=== PATIENT | female | born 1975 | race Caucasian/White ===

== ENCOUNTER → 2017-06-13 | Outpatient (CLI) | payer OTHER ==
[~2017-06-13] MED LIST: ADDERALL XR 1515 MG PO; ADDERALL XR 2525 MG PO; ADDERALL15 MG PO; CIPROFLOXACIN500 M1; CLONAZEPAM0.5 MG PO; CYMBALTA; CYMBALTA30 MG; CYMBALTA60 MG; CYMBALTA60 MG PO; DESYREL100 MG; FLEXERIL5 MG PO; FLOMAX0.4 MG PO; GABAPENTIN600 MG PO; HYDROCODON-ACE1 EA11; LAMICTAL100 MG PO; LAMICTAL25 MG PO; MOTRIN800 MG PO; NAPROSYN500 MG PO; NEURONTIN300 MG PO; ONDANSETRON HCL4 MG; ONDANSETRON ODT4 MG; OXYCODONE-APAP1 EAC6; PERCOCET 5/31 TABLET PO; PHENTERMINE HCL30 MG PO; PROZAC40 MG PO; RITALIN20 MG PO; TORADOL10 MG PO; TRAZODONE; TRAZODONE HCL100 MG PO; TRAZODONE HCL150 MG PO; ULTRAM50 MG PO; VYVANSE20 MG PO; WELLBUTRIN SR150 MG PO; ZOFRAN4 MG PO
== END | disposition home or self-care (01) ==
DX: R13.10 Dysphagia, unspecified (principal); Z87.19 Personal history of other diseases of the digestive system
CPT/HCPCS: 92611 GN; G8996 GN; G8997 GN; G8998 GN

== ENCOUNTER 2017-09-27 05:12 | Day surgery (SDC) | payer OTHER ==
[~2017-09-27] VITALS: Ht 175.3 cm; Wt 110.2 kg
[~2017-09-27 05:12] MED LIST changes: +AMBIEN10 MG PO; +KLONOPIN1 MG PO
[2017-09-27 06:20] VITALS: BP 125/75
[2017-09-27 11:48] VITALS: BP 129/64
[2017-09-27 15:51] VITALS: BP 141/72
[2017-09-27 19:46] VITALS: BP 156/92
[2017-09-28 00:15] VITALS: BP 115/63
[2017-09-28 04:11] VITALS: BP 138/88
[2017-09-28 06:20] LABS: HEMOGLOBIN 12.5 G/DL (11.9-15.5); MCH 26.3 PG (29.0-34.0); MCHC 32.9 G/DL (30.0-36.0); PLATELET COUNT 214 K/uL (156-360); RBC DIS.WIDTH-SD 40.9 % (39-53); RED BLOOD COUNT 4.75 M/uL (3.80-5.20); WHITE BLOOD COUNT 11.6 K/uL (4.1-10.2)
[2017-09-28 07:36] LABS: CHLORIDE 107 MEQ/L (99-109); CREATININE 0.9 MG/DL (0.6-1.3); GFR ESTIMATE (CALCULATED) > 59 mL/min/; GLUCOSE 111 mg/dL (70-99); SODIUM 142 MEQ/L (136-147); UREA NITROGEN (BUN) 7 mg/dL (9-23)
[2017-09-28 07:58] VITALS: BP 160/93
[2017-09-28 08:46] VITALS: BP 141/86
[2017-09-28] MEDS ORDERED: MOTRIN600 MG PO (08:57)
[2017-09-28] MEDS ORDERED: TRAMADOL HCL50 MG PO (08:57)
[2017-09-28 11:01] VITALS: BP 137/76
== END 2017-09-28 12:17 | disposition home or self-care (01) ==
LOC: SDC 05:12 → 2EASTP 09:40 → 2SOUTH 09:40 → SDC 09:41 → ENRESERV 09:51 → 2EASTP 11:29 → SDC 14:07 → 2EASTP 09-28 12:17
PROVIDERS: Obstetrics & Gynecology
DX: N80.0 Endometriosis of uterus (principal); D25.9 Leiomyoma of uterus, unspecified; F41.0 Panic disorder [episodic paroxysmal anxiety]; K66.0 Peritoneal adhesions (postprocedural) (postinfection); Z88.8 Allergy status to other drugs, medicaments and biological substances
CPT/HCPCS: 80048; 85027; 88307; G0378; J0330; J0690; J1100; J1170; J1885; J2001; J2250; J2405; J2795; J3010

== ENCOUNTER 2017-10-18 09:48 | Inpatient (IN) | payer OTHER ==
[~2017-10-18] VITALS: Ht 175.3 cm; Wt 109.3 kg
[~2017-10-18 09:48] MED LIST changes: +MOTRIN600 MG PO; +TRAMADOL HCL50 MG PO
[2017-10-18 10:38] LABS: HEMATOCRIT 42.1 % (36.0-46.0); MCH 27.6 PG (29.0-34.0); MCHC 34.7 G/DL (30.0-36.0); MCV 79.6 FL (83-99); RBC DIS.WIDTH-SD 40.4 % (39-53); RED BLOOD COUNT 5.29 M/uL (3.80-5.20); WHITE BLOOD COUNT 10.3 K/uL (4.1-10.2)
[2017-10-18 10:40] LABS: HEMOGLOBIN 14.6 G/DL (11.9-15.5)
[2017-10-18 10:52] LABS: APPEARANCE SL.HAZY ((CLEAR)); BILIRUBIN NEGATIVE; BLOOD MODERATE; COLOR YELLOW ((YELLOW)); GLUCOSE (STRIP) NEGATIVE; KETONES NEGATIVE; LEUKOCYTES MODERATE; NITRITE NEGATIVE; PROTEIN (STRIP) NEGATIVE; UROBILINOGEN 0.2 MG/DL (0.2-1.0)
[2017-10-18 11:03] LABS: AMPHETAMINE NEGATIVE (500 ng/mL); BARBITURATES NEGATIVE (200 ng/mL); BENZODIAZEPINES PRESUMPTIVE POSITIVE (150 ng/mL); BUPRENORPHINE NEGATIVE (10 ng/mL); COCAINE NEGATIVE (150 ng/mL); METHADONE NEGATIVE (200 ng/mL); METHAMPHETAMINE NEGATIVE (500 ng/mL); OPIATES (MORPHINE) NEGATIVE (100 ng/mL); OXYCODONE NEGATIVE (100 ng/mL); PHENCYCLIDINE NEGATIVE (25 ng/mL); PROPOXYPHENE NEGATIVE (300 ng/mL); THC CANNABINOIDS PRESUMPTIVE POSITIVE (50 ng/mL); TRICYCLIC ANTIDEPRESSANTS NEGATIVE (300 ng/mL)
[2017-10-18 11:06] LABS: BACTERIA NONE SEEN /HPF; EPITHELIAL CELLS 3+ /HPF; MUCUS TRACE /LPF; WHITE BLOOD CELLS 0-5 /HPF (0-5)
[2017-10-18 11:31] LABS: PLAT.SUFFICIENCY ADEQUATE; PLATELET COUNT 261 K/uL (156-360)
[2017-10-18 11:49] LABS: ALBUMIN 4.3 G/DL (3.2-4.8); ALKALINE PHOSPHATASE 81 IU/L (3-129); ALT (GPT) 14 IU/L (3-49); AST (GOT) 16 IU/L (2-34); CHLORIDE 107 MEQ/L (99-109); CREATININE 0.8 MG/DL (0.6-1.3); GFR ESTIMATE (CALCULATED) > 59 mL/min/; GLUCOSE 104 mg/dL (70-99); POTASSIUM 3.8 MEQ/L (3.7-5.4); SERUM ETHYL ALCOHOL < 10 mg/dL; SODIUM 140 MEQ/L (136-147); TOTAL BILIRUBIN 0.5 MG/DL (0.0-1.0); UREA NITROGEN (BUN) 12 mg/dL (9-23)
[2017-10-18 11:52] LABS: BENZODIAZEPINES, URINE SCREEN POSITIVE (200 ng/mL)
[2017-10-18] MEDS ORDERED: CLONAZEPAM0.5 MG PO (16:13)
[2017-10-18] MEDS ORDERED: CYMBALTA60 MG PO (16:14)
[2017-10-18 17:01] VITALS: BP 130/61
[2017-10-18 17:03] VITALS: BP 130/61
[2017-10-18] MEDS ORDERED: WOMEN'S DAILY1 EAC4 PO (17:34)
[2017-10-19 07:55] VITALS: BP 112/72
[2017-10-19 16:04] VITALS: BP 123/71
[2017-10-20 07:54] VITALS: BP 118/67
[2017-10-20 16:39] VITALS: BP 126/70
[2017-10-21 08:09] VITALS: BP 129/61
[2017-10-21 15:19] VITALS: BP 182/88
[2017-10-22 07:50] VITALS: BP 125/75
[2017-10-22 14:35] LABS: APPEARANCE SL.HAZY ((CLEAR)); BILIRUBIN NEGATIVE; BLOOD SMALL; COLOR YELLOW ((YELLOW)); GLUCOSE (STRIP) NEGATIVE; KETONES NEGATIVE; LEUKOCYTES MODERATE; NITRITE NEGATIVE; PROTEIN (STRIP) NEGATIVE; SPECIFIC GRAVITY 1.014 (1.000-1.030); UROBILINOGEN 0.2 MG/DL (0.2-1.0)
[2017-10-22 14:41] LABS: BACTERIA RARE /HPF; EPITHELIAL CELLS RARE /HPF; MUCUS TRACE /LPF; RED BLOOD CELLS 0-5 /HPF (0-5)
[2017-10-22 16:58] VITALS: BP 116/66
[2017-10-23 07:30] VITALS: BP 120/65
[2017-10-23] MEDS ORDERED: LAMOTRIGINE100 MG PO (11:00)
[2017-10-23] MEDS ORDERED: METRONIDAZOLE500 MG PO (11:02)
== END 2017-10-23 12:46 | disposition home or self-care (01) | DRG 885 ==
LOC: EME 09:48 → 1WEST 14:21 → EDOF 14:21 → 1WEST 14:21 → ENRESERV 15:40 → 1WEST 16:52
PROVIDERS: Emergency Medicine; Obstetrics & Gynecology
DX: F31.81 Bipolar II disorder (principal); R45.851 Suicidal ideations; F60.3 Borderline personality disorder; F12.20 Cannabis dependence, uncomplicated; G47.00 Insomnia, unspecified; N89.8 Other specified noninflammatory disorders of vagina; R10.2 Pelvic and perineal pain; Z62.810 Personal history of physical and sexual abuse in childhood; Z62.811 Personal history of psychological abuse in childhood; Z87.891 Personal history of nicotine dependence; Z90.710 Acquired absence of both cervix and uterus; Z90.81 Acquired absence of spleen; Z98.1 Arthrodesis status
CPT/HCPCS: 80053; 81003; 84999; 85027; 87086; 87210; 87480; 87510; 87660; 90839; 97150 GO; 97166 GO; 99281; 99284; G0480